=== PATIENT | male | born 1975 | race Caucasian/White ===

== ENCOUNTER 2020-01-30 09:02 | Outpatient (CLI) | payer BC ==
[~2020-01-30] VITALS: Ht 30.5 cm; Wt 0.5 kg
[2020-01-30] MEDS ORDERED: Lidocaine 2% MPF 5ml Vial INJ ONE (09:15)
[2020-01-30 09:56] LABS: BASOPHILS % (AUTO) 1.4 % (0.0-2.0); EOSINOPHILS % (AUTO) 5.2 % (0.0-3.0); HEMATOCRIT 43.1 % (42.0-52.0); HEMOGLOBIN 14.6 G/DL (14.2-18.0); MEAN CORPUSCULAR VOLUME 80 FL (80-99); MONOCYTES % (AUTO) 8.4 % (1.0-10.0); PLATELET COUNT 273 K/UL (150-450); RED BLOOD COUNT 5.36 M/UL (4.70-6.10); RED CELL DISTRIBUTION WIDTH 11.6 % (11.6-14.8); WHITE BLOOD COUNT 7.1 K/UL (4.8-10.8)
--- NOTE | 2020-01-30 09:58 | PATHOLOGY BONE BARROW ---
Bone Marrow Aspirate & Biopsy . PROCEDURE: Bone Marrow Aspirate and Biopsy INDICATION: cutaneous lymphoma PROCEDURE DELIVERER MERCHANDISE: Farheen Slade MD CONSENT: Consent was previously obtained from the patient. The risks and benefits were re-explained. The patient agreed to undergo the procedure. A TIMEOUT WAS EXECUTED: Yes PROCEDURE SUMMARY: The patient was laid in the prone position. The left posterior iliac crest was prepped and draped in a sterile fashion. The crest of the posterior iliac was located, and the skin as well as surface of the bone was anesthetized with 10cc 2% lidocaine. An aspirating needle was introduced. The procedure was discontinued before entry into bone due to patient discomfort. A recommendation was made for the procedure to be repeated under radiographic guidance. ESTIMATED BLOOD LOSS: Farheen Adkins Jan 30, 2020 09:58
== END 2020-01-30 11:02 | disposition home or self-care (01) ==
LOC: RAD 09:02
DX: C84.A0 Cutaneous T-cell lymphoma, unspecified, unspecified site (principal)
CPT/HCPCS: 36415; 38222; 85025